=== PATIENT | female | born 1950 | race Caucasian/White ===

== ENCOUNTER 2024-08-29 11:58 | Inpatient (IN) | payer MEDICARE, OTHER ==
[~2024-08-29] VITALS: Ht 167.6 cm; Wt 97.5 kg
[2024-08-29] MEDS ORDERED: GABA300C PO (12:13)
[2024-08-29] MEDS ORDERED: OMEP20TA5 PO (12:13)
[2024-08-29] MEDS ORDERED: ASPI81TA31 PO (12:13)
[2024-08-29] MEDS ORDERED: TRIA60LO16 TP (12:13)
[2024-08-29] MEDS ORDERED: BISA-79 PO (12:13)
[2024-08-29] MEDS ORDERED: DULO30CA2 PO (12:13)
[2024-08-29] MEDS ORDERED: BACL10TA PO (12:13)
[2024-08-29] MEDS ORDERED: ZOLP10TA2 PO (12:13)
[2024-08-29] MEDS ORDERED: LORA0.5T48 PO (12:13)
[2024-08-29] MEDS ORDERED: CYAN100096 PO (12:13)
[2024-08-29] MEDS ORDERED: ZIPRASIDONE MESYLATE 20 MG VIAL IM ONE (12:15)
[2024-08-29] MEDS: ZIPRASIDONE MESYLATE 20 MG VIAL IM ONE (12:21)
[2024-08-29 12:52] LABS: BASOPHILS % (AUTO) 0.4 % (0.0-2.0); EOSINOPHILS # (AUTO) 0.1 K/uL (0.0-0.7); EOSINOPHILS % (AUTO) 0.9 % (0.0-7.0); HEMATOCRIT 42.7 % (31.2-41.9); HEMOGLOBIN 14.4 g/dL (10.9-14.3); LYMPHOCYTES # (AUTO) 1.9 K/uL (0.8-4.8); LYMPHOCYTES % (AUTO) 19.9 % (20.5-51.5); MEAN CORPUSCULAR HEMOGLOBIN 33.4 uug (24.7-32.8); MEAN CORPUSCULAR HGB CONC 34 g/dL (32.3-35.6); MEAN CORPUSCULAR VOLUME 99.1 fL (75.5-95.3); MONOCYTES # (AUTO) 0.6 K/uL (0.1-1.30); MONOCYTES % (AUTO) 6.8 % (0.0-11.0); NEUTROPHILS # (AUTO) 6.8 K/uL (1.8-8.9); PLATELET COUNT (AUTO) 238 K/uL (179-408); RED BLOOD CELL COUNT(AUTO) 4.31 MIL/uL (3.63-4.92); RED CELL DISTRIBUTION WIDTH 12.6 % (12.3-17.7); WHITE BLOOD COUNT (AUTO) 9.4 K/uL (3.8-11.8)
[2024-08-29 12:58] LABS: CALCIUM 9.3 mg/dL (8.5-10.1); CARBON DIOXIDE 24 mmol/L (21-32); CHLORIDE 109 mmol/L (98-107); CREATININE 0.8 mg/dL (0.6-1.3); GLUCOSE 117 mg/dL (74-106); SODIUM SERUM 144 mmol/L (136-145); UREA NITROGEN, BLOOD 24 mg/dL (7-18)
[2024-08-29 13:00] LABS: AMMONIA 24 umol/L (11-32)
[2024-08-29 13:03] LABS: ETHANOL < 3 MG/DL (0-10)
[2024-08-29 13:05] LABS: DIFFERENTIAL COMMENT 1
[2024-08-29 13:07] LABS: ALANINE AMINOTRANSFERASE 35 U/L (14-59); ALBUMIN 3.2 g/dL (3.4-5.0); ALKALINE PHOSPHATASE 125 U/L (50-136); ASPARTATE AMINOTRANSFERASE 20 U/L (15-37); BILIRUBIN,DIRECT 0.1 mg/dL (0.0-0.2); BILIRUBIN,TOTAL 0.2 mg/dL (0.2-1.0); TOTAL PROTEIN, SERUM 7.4 g/dL (6.4-8.2)
[2024-08-29 13:20] LABS: ACETAMINOPHEN < 10.0 ug/mL (10-30)
[2024-08-29 14:13] LABS: *BILIRUBIN,URIN NEGATIVE (NEGATIVE); *BLOOD, URINE 1+ (NEGATIVE); *CLARITY,URINE CLEAR (CLEAR); *COLOR,URINE YELLOW (YELLOW); *KETONES,URINE NEGATIVE (NEGATIVE); *PROTEIN,URINE NEGATIVE (NEGATIVE); *UROBILINOGEN,URINE 0.2 E.U./dl (NORMAL); LEUKOCYTE ESTERASE ,URINE NEGATIVE (NEGATIVE); NITRITE, URINE NEGATIVE (NEGATIVE); PH,URINE 5.5 (5.0-8.0); UGLUCOSE NEGATIVE (NEGATIVE)
[2024-08-29 14:18] LABS: BACTERIA,URINE FEW /HPF (NONE SEEN); RBC,URINE 20-50 /HPF (0-3); SQUAMOUS EPITHELIAL CELL,UR MODERATE /HPF (NONE SEEN); WBC,URINE 0-3 /HPF (0-3)
[2024-08-29 14:31] LABS: *AMPHETAMINE, URINE NEGATIVE (NEGATIVE); *BARBITURATE, URINE NEGATIVE (NEGATIVE); *BENZODIAZEPINE, URINE NEGATIVE (NEGATIVE); *CANNABINOID, URINE NEGATIVE (NEGATIVE); *COCCAINE, URINE NEGATIVE (NEGATIVE); *OPIATE, URINE NEGATIVE (NEGATIVE); *PHENCYCLIDINE SCREEN,URINE NEGATIVE (NEGATIVE); FENTANYL, URINE NEGATIVE (NEGATIVE)
[2024-08-29 16:30] VITALS: BP 141/75; TEMP 97.7; O2SAT 97
[2024-08-29] MEDS ORDERED: LORAZEPAM 0.5 MG TABLET PO PRN (19:00)
[2024-08-29 20:05] VITALS: BP 140/72; TEMP 97.8; O2SAT 96
[2024-08-29] MEDS: ZOLPIDEM 5 MG TABLET PO PRN (21:11)
[2024-08-29] MEDS: ACETAMINOPHEN 325 MG TABLET PO PRN (21:12)
[2024-08-30 08:06] VITALS: BP 115/70; TEMP 98; O2SAT 96
[2024-08-30] MEDS: ASPIRIN 81 MG TAB.CHEW PO SCH (08:33)
[2024-08-30] MEDS: BACLOFEN 10 MG TABLET PO SCH (08:33)
[2024-08-30] MEDS: TRIAMCINOLONE ACET 0.025% LOT 60 ML BOTTLE TP SCH (08:34)
[2024-08-30] MEDS ORDERED: TRIAMCINOLONE 0.1% (08:57)
[2024-08-30] MEDS: GABAPENTIN 300 MG CAPSULE PO SCH (09:40)
[2024-08-30 15:19] LABS: ALANINE AMINOTRANSFERASE 34 U/L (14-59); ALBUMIN 3.7 g/dL (3.4-5.0); ALKALINE PHOSPHATASE 136 U/L (50-136); ASPARTATE AMINOTRANSFERASE 16 U/L (15-37); BILIRUBIN,DIRECT 0.1 mg/dL (0.0-0.2); BILIRUBIN,TOTAL 0.3 mg/dL (0.2-1.0); CALCIUM 9.4 mg/dL (8.5-10.1); CARBON DIOXIDE 29 mmol/L (21-32); CHLORIDE 106 mmol/L (98-107); CREATININE 0.8 mg/dL (0.6-1.3); GLUCOSE 96 mg/dL (74-106); POTASSIUM 4.1 mmol/L (3.5-5.1); SODIUM SERUM 144 mmol/L (136-145); TOTAL PROTEIN, SERUM 7.6 g/dL (6.4-8.2); UREA NITROGEN, BLOOD 24 mg/dL (7-18)
[2024-08-30 16:20] LABS: THYROID STIMULATING HORMONE 1.328 mIU/mL (0.358-3.740)
[2024-08-30] MEDS: TRIAMCINOLONE ACET 0.1% CREAM 15 GM TUBE TOP SCH (17:00)
[2024-08-30 20:13] VITALS: BP 112/72; TEMP 98.1; O2SAT 96
[2024-08-30] MEDS: QUETIAPINE FUMARATE 25 MG TABLET PO SCH (20:32)
[2024-08-30] MEDS: ZOLPIDEM 5 MG TABLET PO PRN (22:10)
[2024-08-31 08:31] VITALS: BP 148/61; TEMP 98; O2SAT 98
[2024-08-31] MEDS: DULOXETINE 30 MG CAPSULE.DR PO SCH (09:04)
[2024-08-31] MEDS: BISACODYL 5 MG TABLET.DR PO PRN (09:05)
[2024-08-31] MEDS: DIVALPROEX 250 MG TABLET.DR PO SCH (09:23)
[2024-08-31 15:21] VITALS: BP 99/53; TEMP 98; O2SAT 98
[2024-08-31 20:00] VITALS: BP 100/62; TEMP 98.3; O2SAT 95
[2024-08-31] MEDS: ATORVASTATIN 10 MG TABLET PO SCH (21:10)
[2024-09-01 08:05] VITALS: BP 136/69; TEMP 98.2; O2SAT 99
[2024-09-01] MEDS: GABAPENTIN 300 MG CAPSULE PO SCH ×2 (09:50→17:18)
[2024-09-01] MEDS: LORAZEPAM 0.5 MG TABLET PO PRN (13:10)
[2024-09-01 15:40] VITALS: BP 116/62; TEMP 98; O2SAT 98
[2024-09-01 20:00] VITALS: BP 118/63; TEMP 98.3; O2SAT 95
[2024-09-02] MEDS: FAMOTIDINE 20 MG TABLET PO SCH (07:00)
[2024-09-02 08:01] VITALS: BP 137/53; TEMP 98; O2SAT 98
[2024-09-02] MEDS: GABAPENTIN 300 MG CAPSULE PO SCH (09:48)
[2024-09-02 15:20] VITALS: BP 105/53; TEMP 98; O2SAT 98
[2024-09-02 20:00] VITALS: BP 101/73; TEMP 98; O2SAT 95
[2024-09-03 07:24] VITALS: BP 109/52; TEMP 98.3; O2SAT 94
[2024-09-03 20:00] VITALS: BP 118/60; TEMP 98.8; O2SAT 93
[2024-09-03] MEDS: NYSTATIN POWDER 15 GM BOTTLE TOP SCH (20:57)
[2024-09-04 07:39] VITALS: BP 97/58; TEMP 97.8; O2SAT 94
[2024-09-04 15:05] VITALS: BP 115/59; TEMP 98.5; O2SAT 93
[2024-09-04 20:00] VITALS: BP 124/64; TEMP 98.1; O2SAT 95
[2024-09-05 07:53] VITALS: BP 110/69; TEMP 97.8; O2SAT 94
[2024-09-05] MEDS: ENSURE ENLIVE (VAN) 240 ML LIQUID PO SCH (12:10)
[2024-09-05 16:00] VITALS: BP 117/65; TEMP 97.6; O2SAT 95
[2024-09-05 20:00] VITALS: BP 135/73; TEMP 98.3; O2SAT 96
[2024-09-05] MEDS: MAGNESIUM HYDROXIDE 30 ML LIQUID UDC PO PRN (20:57)
[2024-09-05] MEDS: TRIAMCINOLONE ACET 0.1% CREAM 15 GM TUBE TOP SCH (20:58)
[2024-09-06 07:41] VITALS: BP 106/62; TEMP 97.5; O2SAT 94
[2024-09-06 15:40] VITALS: BP 101/59; TEMP 98.1; O2SAT 94
[2024-09-06 19:57] VITALS: BP 120/72; TEMP 97.9; O2SAT 95
[2024-09-07 07:44] VITALS: BP 99/62; TEMP 98.3; O2SAT 95
[2024-09-07 15:22] VITALS: BP 96/49; TEMP 98.5; O2SAT 93
[2024-09-07 20:14] VITALS: BP 123/81; TEMP 98.1; O2SAT 94
[2024-09-08 09:11] VITALS: BP 128/60; TEMP 98; O2SAT 99
[2024-09-08 20:21] VITALS: BP 119/72; TEMP 97.9; O2SAT 96
[2024-09-09 07:59] VITALS: BP 104/72; TEMP 98.3; O2SAT 99
[2024-09-09 15:40] VITALS: BP 115/61; TEMP 98; O2SAT 99
[2024-09-09 19:54] LABS: *BILIRUBIN,URIN NEGATIVE (NEGATIVE); *BLOOD, URINE TRACE (NEGATIVE); *CLARITY,URINE CLEAR (CLEAR); *COLOR,URINE YELLOW (YELLOW); *KETONES,URINE NEGATIVE (NEGATIVE); *PROTEIN,URINE NEGATIVE (NEGATIVE); *UROBILINOGEN,URINE 0.2 E.U./dl (NORMAL); LEUKOCYTE ESTERASE ,URINE NEGATIVE (NEGATIVE); NITRITE, URINE NEGATIVE (NEGATIVE); PH,URINE 6.5 (5.0-8.0); UGLUCOSE NEGATIVE (NEGATIVE)
[2024-09-09 20:00] VITALS: BP 116/62; TEMP 98; O2SAT 96
[2024-09-09 20:00] LABS: BACTERIA,URINE MODERATE /HPF (NONE SEEN); SQUAMOUS EPITHELIAL CELL,UR MANY /HPF (NONE SEEN); WBC,URINE 0-3 /HPF (0-3)
[2024-09-10 07:28] LABS: BASOPHILS % (AUTO) 0.6 % (0.0-2.0); EOSINOPHILS # (AUTO) 0.1 K/uL (0.0-0.7); EOSINOPHILS % (AUTO) 1.6 % (0.0-7.0); HEMATOCRIT 38.8 % (31.2-41.9); HEMOGLOBIN 13.2 g/dL (10.9-14.3); LYMPHOCYTES # (AUTO) 2.5 K/uL (0.8-4.8); LYMPHOCYTES % (AUTO) 33.5 % (20.5-51.5); MEAN CORPUSCULAR HGB CONC 34 g/dL (32.3-35.6); MEAN CORPUSCULAR VOLUME 100.2 fL (75.5-95.3); MONOCYTES # (AUTO) 0.6 K/uL (0.1-1.30); MONOCYTES % (AUTO) 8.8 % (0.0-11.0); NEUTROPHILS # (AUTO) 4.1 K/uL (1.8-8.9); NEUTROPHILS % (AUTO) 55.5 % (38.5-71.5); PLATELET COUNT (AUTO) 214 K/uL (179-408); RED BLOOD CELL COUNT(AUTO) 3.87 MIL/uL (3.63-4.92); RED CELL DISTRIBUTION WIDTH 12.7 % (12.3-17.7); WHITE BLOOD COUNT (AUTO) 7.4 K/uL (3.8-11.8)
[2024-09-10 07:36] LABS: DIFFERENTIAL COMMENT 1
[2024-09-10 07:38] LABS: CALCIUM 9.1 mg/dL (8.5-10.1); CARBON DIOXIDE 31 mmol/L (21-32); CHLORIDE 106 mmol/L (98-107); CREATININE 0.8 mg/dL (0.6-1.3); GLUCOSE 79 mg/dL (74-106); POTASSIUM 4.5 mmol/L (3.5-5.1); SODIUM SERUM 145 mmol/L (136-145); UREA NITROGEN, BLOOD 28 mg/dL (7-18); VALPROIC ACID 27 ug/mL (50-100)
[2024-09-10 08:00] VITALS: BP 117/61; TEMP 97.6; O2SAT 97
[2024-09-10] MEDS: DIVALPROEX 250 MG TABLET.DR PO SCH (08:27)
[2024-09-10] MEDS: MAGNESIUM HYDROXIDE 30 ML LIQUID UDC PO ONE (08:58)
[2024-09-10 20:00] VITALS: BP 109/68; TEMP 97.8; O2SAT 96
[2024-09-11 07:46] VITALS: BP 124/68; TEMP 97.6; O2SAT 97
[2024-09-11 16:47] VITALS: BP 128/79; TEMP 97.3; O2SAT 97
[2024-09-11 20:15] VITALS: BP 112/79; TEMP 97.2; O2SAT 97
[2024-09-12] MEDS: MAG HYDROX/AL HYDROX/SIMETH 30 ML LIQUID UDC PO PRN (01:04)
[2024-09-12 07:54] VITALS: BP 105/56; TEMP 98.4; O2SAT 97
[2024-09-12 16:08] VITALS: BP 98/68; TEMP 98.1; O2SAT 96
[2024-09-12 20:00] VITALS: BP 128/71; TEMP 98; O2SAT 96
[2024-09-12] MEDS: DIVALPROEX 250 MG TABLET.DR PO SCH (20:45)
[2024-09-13 07:49] VITALS: BP 134/69; TEMP 97.9; O2SAT 94
[2024-09-13 16:08] VITALS: BP 108/73; TEMP 97.6; O2SAT 96
[2024-09-13 20:00] VITALS: BP 97/70; TEMP 98.4; O2SAT 95
[2024-09-14 08:32] VITALS: BP 113/64; TEMP 98; O2SAT 100
[2024-09-14 20:00] VITALS: BP 108/63; TEMP 98.1; O2SAT 100
[2024-09-15 08:17] VITALS: BP 105/41; TEMP 97.6; O2SAT 98
[2024-09-15 17:07] VITALS: BP 117/65; TEMP 98.3; O2SAT 95
[2024-09-15 19:36] VITALS: BP 130/70; TEMP 98.1; O2SAT 95
[2024-09-16 16:50] VITALS: BP 136/64; TEMP 98.1; O2SAT 96
== END 2024-09-16 17:59 | DRG 885 ==
LOC: ER 11:58 → GPS 16:08
PROVIDERS: ADMIT Psychiatry & Neurology Psychiatry; ATTEND Nurse Practitioner Acute Care
DX: F33.3 Major depressive disorder, recurrent, severe with psychotic symptoms (principal); F03.94 Unspecified dementia, unspecified severity, with anxiety; F03.911 Unspecified dementia, unspecified severity, with agitation; K21.9 Gastro-esophageal reflux disease without esophagitis; G47.00 Insomnia, unspecified; Z79.899 Other long term (current) drug therapy; D75.89 Other specified diseases of blood and blood-forming organs; E66.9 Obesity, unspecified; Z68.34 Body mass index [BMI] 34.0-34.9, adult; E78.5 Hyperlipidemia, unspecified; G62.9 Polyneuropathy, unspecified; L30.9 Dermatitis, unspecified; E88.09 Other disorders of plasma-protein metabolism, not elsewhere classified; K59.00 Constipation, unspecified
CPT/HCPCS: 36415; 70450; 71045; 80164; 83605; 83921; 84443; 84484; 85025; 85730; 87040; A4606; A4663; G0480; J3486; J3490